=== PATIENT | male | born 1955 | race Caucasian/White ===

== ENCOUNTER 2020-10-08 12:18 | Emergency (ER) | payer MEDICARE ==
[~2020-10-08] VITALS: Ht 182.9 cm; Wt 111.1 kg
[2020-10-08 14:12] LABS: BASOPHILS ABSOLUTE AUTO 0.02 K/mm3 (0.00-0.23); BASOPHILS PERCENT AUTO 0 % (0-2); EOSINOPHILS ABSOLUTE AUTO 0.07 K/mm3 (0.00-0.68); EOSINOPHILS PERCENT AUTO 1 % (0-6); Hematocrit 44.7 % (37.0-53.0); IMMATURE GRAN ABSOLUTE AUTO 0.02 K/mm3 (0.00-0.10); IMMATURE GRAN PERCENT AUTO 0 % (0-1); LYMPHOCYTES ABSOLUTE AUTO 2.46 K/mm3 (0.84-5.20); LYMPHOCYTES PERCENT AUTO 35 % (21-46); MONOCYTES ABSOLUTE AUTO 0.63 K/mm3 (0.16-1.47); MONOCYTES PERCENT AUTO 9 % (4-13); Mean Corpuscular HGB 34.7 pg (26.0-34.0); Mean Corpuscular HGB Conc 33.6 g/dL (31.5-36.5); Mean Corpuscular Volume 104 fL (80-100); Mean Platelet Volume 9.6 fL (9.1-12.4); NEUTROPHILS PERCENT AUTO 54 % (41-73); Platelet Count 208 K/mm3 (150-400); RDW Coefficient Variation 12.5 % (11.7-14.2); RDW Standard Deviation 47.9 fL (35.1-46.3); Red Blood Cell Count 4.32 M/mm3 (4.30-5.90)
[2020-10-08 14:20] LABS: Calcium, Ionized (POC) 1.17 mmol/L (1.10-1.46); Chloride (POC) 102 mmol/L (98-108); Glucose (ISTAT POC) 88 mg/dL (70-99); Potassium (POC) 4.3 mmol/L (3.5-5.5); Sodium (POC) 138 mmol/L (135-148); Total CO2 (POC) 26 mmol/L (21-32)
[2020-10-08 14:30] LABS: Anion Gap 5 mmol/L (6-16); Blood Urea Nitrogen 10 mg/dL (8-24); Bun/Creatinine Ratio 12.4 (12.0-20.0); CO2, Blood 28 mmol/L (21-32); Calcium, Blood 9.1 mg/dL (8.5-10.1); Chloride, Blood 107 mmol/L (98-108); Creatinine, Blood 0.81 mg/dL (0.60-1.20); Glomerular Filtration Rate >60 (60-); Glucose, Blood 96 mg/dL (70-99); Potassium, Blood 4.4 mmol/L (3.5-5.5); Sodium, Blood 140 mmol/L (136-145)
[2020-10-08] MEDS ORDERED: HYDR1TAB94 PO (15:34)
== END 2020-10-08 15:45 | disposition home or self-care (01) ==
LOC: ER 12:18
PROVIDERS: Physician Assistant
DX: S20.212A Contusion of left front wall of thorax, initial encounter (principal); S39.91XA Unspecified injury of abdomen, initial encounter; W17.89XA Other fall from one level to another, initial encounter; Y93.89 Activity, other specified
CPT/HCPCS: 71100; 74177; 80047; 80048; 85014; 85025; 99284-25; Q9967

== ENCOUNTER 2021-05-17 15:16 | Inpatient (IN) | payer MEDICARE ==
[~2021-05-17] VITALS: Ht 170.2 cm; Wt 113.4 kg
[~2021-05-17 15:16] MED LIST: HYDR1TAB94 PO
[2021-05-17 15:45] LABS: Hematocrit 42.1 % (37.0-53.0); Hemoglobin 14.3 g/dL (13.5-17.5); Mean Corpuscular HGB 34.6 pg (26.0-34.0); Mean Corpuscular Volume 102 fL (80-100); Mean Platelet Volume 10.3 fL (9.1-12.4); Platelet Count 144 K/mm3 (150-400); RDW Coefficient Variation 13.1 % (11.7-14.2); RDW Standard Deviation 49.1 fL (35.1-46.3); Red Blood Cell Count 4.13 M/mm3 (4.30-5.90); White Blood Cell Count 12.46 K/mm3 (4.00-11.30)
[2021-05-17 15:55] LABS: Alanine Aminotransfer (ALT/SGP 95 U/L (12-78); Albumin, Blood 2.8 g/dL (3.4-5.0); Albumin/Globulin Ratio 0.7 (0.8-1.8); Alk Phos 69 U/L (50-136); Anion Gap 6 mmol/L (6-16); Aspartate Aminotrans (AST/SGOT 117 U/L (12-37); Bilirubin, Total 0.7 mg/dL (0.1-1.0); Blood Urea Nitrogen 10 mg/dL (8-24); Bun/Creatinine Ratio 9.9 (12.0-20.0); CO2, Blood 26 mmol/L (21-32); Chloride, Blood 107 mmol/L (98-108); Creatinine, Blood 1.01 mg/dL (0.60-1.20); Globulin, Blood 4.1 g/dL (2.2-4.0); Glomerular Filtration Rate >60 (60-); Glucose, Blood 116 mg/dL (70-99); Sodium, Blood 139 mmol/L (136-145); Total Protein, Blood 6.9 g/dL (6.4-8.2); Troponin I 0.015 ng/mL (0.000-0.040)
[2021-05-17 16:10] LABS: BAND PERCENT MAN 21 % (0-8); BASOPHILS PERCENT MAN 0 % (0-2); EOSINOPHILS PERCENT MAN 0 % (0-6); LYMPHOCYTES % ATYPICAL MANUAL 1 % (0-0); LYMPHOCYTES ABSOLUTE MAN 1.61 K/mm3 (0.84-5.20); LYMPHOCYTES PERCENT MAN 12 % (21-46); METAMYELOCYTE ABSOLUTE MAN 0.24 K/mm3 (0.00-0.00); METAMYELOCYTE PERCENT MAN 2 % (0-0); MONOCYTES ABSOLUTE MAN 0.37 K/mm3 (0.16-1.47); MONOCYTES PERCENT MAN 3 % (4-13); NEUTROPHILS ABSOLUTE MAN 10.21 K/mm3 (1.96-9.15); SEG NEUTROPHILS PERCENT MAN 61 % (41-73); TOTAL CELLS COUNTED 100
[2021-05-17] MEDS ORDERED: AMPDEX5 PO (17:45)
[2021-05-17] MEDS ORDERED: CLON1 PO (17:46)
[2021-05-17 18:32] LABS: U Amphetamine Screen DETECTED; U Barbituate Screen Not Detected; U Benzodiazapine Screen Not Detected; U Buprenorphine Screen Not Detected; U Cannabinoids Screen Not Detected; U Cocaine Screen Not Detected; U Methadone Screen Not Detected; U Methamphetamine Screen DETECTED; U Opiates Screen DETECTED; U Oxycodone Screen Not Detected; U Phencyclidine Screen Not Detected; U Propoxyphene Screen Not Detected
--- NOTE | 2021-05-17 23:21 | NUR ---
65 yr old male admitted to floor from the ed with dx of covid +, lungs diminished in all lobes to auscultation. O2 started at 1L/min per nc. IVF of LR infusing at 125 ml/hr. Oriented to use of call light, call light in reach. Instructed to remain in bed as he has HX of falls. Bed alram on. Isolation precautions maintained
--- NOTE | 2021-05-18 02:44 | NUR ---
3 BLUE PILLS FOUND IN BED WITH PT. NOT IDENTIFIABLE. NOT ADMINISTERED BY STAFF HERE AT [facility], PT VOICED WERE PILLS BROUGHT FROM HOME. PILLS DISCARDED IN SHARPS CONTAINER. INSTRUCTED NOT TO TAKE ANY MEDICATIONS NOT GIVEN TO HIM BY STAFF HERE. BELONGINGS SEARCHED, PERSONAL MEDICATIONS REMOVED AND PLACED IN LOCKED DRAWER. CALL LIGHT IN REACH.
--- NOTE | 2021-05-18 03:37 | NUR ---
[employer] SUMMARY WAS ADMITTED EARLIER IN THE SHIFT WITH COVID + DX. PLACED ON O2 AT 1L/MIN FOR COMFORT. SATS MAINTAINED. IV OF LR INFUSING AT 125 ML/HR. INSTRUCTED TO REMAIN IN BED HE IS UNSTEADY ON FEET AND HAS FALLEN AT HOME. MULTIPLE REDIRECTIONS FOR SAFETY GIVEN. PERSONAL MEDS FOUND IN BED AND CONFISCATED AND INSTRUCTED NOT TO TAKE MEDS NOT ADMINISTERED BY HOSPITAL STAFF THEY COULD INTERFERE WITH MEDS GIVEN HERE. PERSONAL MEDS PLACED IN LOCK UP AND WILL BE GIVEN BACK TO HIM UPON DISCHARGE. CALL LIGHT IN REACH. DROPLET PRECAUTIONS MAINTAINED.
[2021-05-18 05:59] LABS: Hematocrit 42.1 % (37.0-53.0); Hemoglobin 13.8 g/dL (13.5-17.5); Mean Corpuscular HGB 34.1 pg (26.0-34.0); Mean Corpuscular HGB Conc 32.8 g/dL (31.5-36.5); Mean Corpuscular Volume 104 fL (80-100); Mean Platelet Volume 10.6 fL (9.1-12.4); Platelet Count 140 K/mm3 (150-400); RDW Coefficient Variation 13.3 % (11.7-14.2); RDW Standard Deviation 51.9 fL (35.1-46.3); Red Blood Cell Count 4.05 M/mm3 (4.30-5.90); White Blood Cell Count 12.54 K/mm3 (4.00-11.30)
[2021-05-18 06:10] LABS: Alanine Aminotransfer (ALT/SGP 77 U/L (12-78); Albumin, Blood 2.4 g/dL (3.4-5.0); Albumin/Globulin Ratio 0.5 (0.8-1.8); Alk Phos 67 U/L (50-136); Anion Gap 5 mmol/L (6-16); Aspartate Aminotrans (AST/SGOT 70 U/L (12-37); Bilirubin, Total 0.6 mg/dL (0.1-1.0); Blood Urea Nitrogen 10 mg/dL (8-24); Bun/Creatinine Ratio 11.4 (12.0-20.0); CO2, Blood 28 mmol/L (21-32); Chloride, Blood 108 mmol/L (98-108); Creatinine, Blood 0.87 mg/dL (0.60-1.20); Globulin, Blood 4.4 g/dL (2.2-4.0); Glomerular Filtration Rate >60 (60-); Glucose, Blood 110 mg/dL (70-99); Potassium, Blood 3.9 mmol/L (3.5-5.5); Sodium, Blood 141 mmol/L (136-145); Total Protein, Blood 6.8 g/dL (6.4-8.2)
--- NOTE | 2021-05-18 16:54 | NUR ---
SHIFT SUMMARY. A&OX3, INDEPENDENT TO BSC, PLEASANT AND COOPERATIVE WITH CARE, FLAT AFFECT. PT DENIES PAIN, N/V. PT REPORTS POOR APPETITE. PT ON 1L O2 THIS AM, NOW ON RA. LUNGS DIM IN THE BASES. SOB WITH EXERTION. PT RECIEVED SHOWER TODAY AFTER INCONTINENT UNFORMED BM THIS AFTERNOON WHILE UP IN CHAIR. PT REPORTS "ABX ALWAYS GIVE ME DIARRHEA." NO FURTHER BMS THIS SHIFT. DAUGHER CALLED AND UPDATE GIVEN PER PT REQUEST. NO OTHER CHANGES OR CONCERNS.
--- NOTE | 2021-05-19 04:00 | NUR ---
SHIFT SUMMARY ADMITTED FOR COVID+/SEPSIS. FULL CODE. POSSIBLE BACTERIAL PNEUMONIA. HOPEFUL FOR DC HOME TODAY W/HH. NO NEW CONCERNS THIS SHIFT
[2021-05-19 05:39] LABS: BASOPHILS ABSOLUTE AUTO 0.01 K/mm3 (0.00-0.23); BASOPHILS PERCENT AUTO 0 % (0-2); EOSINOPHILS PERCENT AUTO 0 % (0-6); Hematocrit 47.8 % (37.0-53.0); Hemoglobin 15.5 g/dL (13.5-17.5); IMMATURE GRAN ABSOLUTE AUTO 0.04 K/mm3 (0.00-0.10); IMMATURE GRAN PERCENT AUTO 1 % (0-1); LYMPHOCYTES ABSOLUTE AUTO 2.13 K/mm3 (0.84-5.20); LYMPHOCYTES PERCENT AUTO 26 % (21-46); MONOCYTES ABSOLUTE AUTO 0.31 K/mm3 (0.16-1.47); MONOCYTES PERCENT AUTO 4 % (4-13); Mean Corpuscular HGB 34.6 pg (26.0-34.0); Mean Corpuscular HGB Conc 32.4 g/dL (31.5-36.5); Mean Corpuscular Volume 107 fL (80-100); NEUTROPHILS ABSOLUTE AUTO 5.73 K/mm3 (1.96-9.15); NEUTROPHILS PERCENT AUTO 70 % (41-73); Platelet Count 159 K/mm3 (150-400); RDW Coefficient Variation 13.2 % (11.7-14.2); RDW Standard Deviation 52.9 fL (35.1-46.3); Red Blood Cell Count 4.48 M/mm3 (4.30-5.90); White Blood Cell Count 8.22 K/mm3 (4.00-11.30)
[2021-05-19 06:07] LABS: Alanine Aminotransfer (ALT/SGP 71 U/L (12-78); Albumin, Blood 2.5 g/dL (3.4-5.0); Albumin/Globulin Ratio 0.5 (0.8-1.8); Alk Phos 74 U/L (50-136); Anion Gap 10 mmol/L (6-16); Aspartate Aminotrans (AST/SGOT 48 U/L (12-37); Bilirubin, Total 1.3 mg/dL (0.1-1.0); Blood Urea Nitrogen 13 mg/dL (8-24); Bun/Creatinine Ratio 17.8 (12.0-20.0); CO2, Blood 26 mmol/L (21-32); Calcium, Blood 9.1 mg/dL (8.5-10.1); Chloride, Blood 108 mmol/L (98-108); Creatinine, Blood 0.73 mg/dL (0.60-1.20); Globulin, Blood 5.3 g/dL (2.2-4.0); Glomerular Filtration Rate >60 (60-); Glucose, Blood 120 mg/dL (70-99); Potassium, Blood 3.5 mmol/L (3.5-5.5); Sodium, Blood 144 mmol/L (136-145); Total Protein, Blood 7.8 g/dL (6.4-8.2)
[2021-05-19] MEDS ORDERED: GUAI600T33 PO (11:13)
[2021-05-19] MEDS ORDERED: LACT PO (11:14)
[2021-05-19] MEDS ORDERED: AZIT250 PO (11:14)
[2021-05-19] MEDS ORDERED: CEPH500 PO (11:15)
--- NOTE | 2021-05-19 13:18 | NUR ---
PATIENT DISCHARGED AT 13:15. GREY ROLL MAN PUSHED THE PATIENT TO HIS DAUGHTERS CAR BY WHEELCHAIR. DISCHARGE INFORMATION AND NEW MEDICATIONS GONE OVER WITH THE PATIENT.
--- NOTE | 2021-05-19 13:19 | NUR ---
STEFFEN RN ATTEMPTED TO MAKE HIS FOLLOW UP APPOINTMENT WITH HIS PCP BUT THERE WAS NO ANSWER.
--- NOTE | 2021-05-19 14:24 | NUR ---
Pt. is discharged for good wished him all the best
--- NOTE | 2021-05-19 14:34 | NUR ---
Pt. is discharged and gone home
== END 2021-05-19 13:37 | disposition home health service (06) | DRG 871 ==
LOC: ER 15:16 → ERHOLD 19:46 → MEDS 21:43
PROVIDERS: Emergency Medicine; Family Medicine; ADMIT Internal Medicine
PROC: 8E0ZXY6 Isolation (ICD-10-PCS; 2021-05-17)
PROC: 3E0D73Z Introduction of Anti-inflammatory into Mouth and Pharynx, Via Natural or Artificial Opening (ICD-10-PCS; principal; 2021-05-18)
DX: A41.89 Other specified sepsis (principal); U07.1 COVID-19; J12.82 Pneumonia due to coronavirus disease 2019; J15.9 Unspecified bacterial pneumonia; F19.10 Other psychoactive substance abuse, uncomplicated; E66.01 Morbid (severe) obesity due to excess calories; D69.59 Other secondary thrombocytopenia; G89.29 Other chronic pain; M54.9 Dorsalgia, unspecified; R09.02 Hypoxemia; Z62.810 Personal history of physical and sexual abuse in childhood; Z98.890 Other specified postprocedural states; Z79.899 Other long term (current) drug therapy; Z68.39 Body mass index [BMI] 39.0-39.9, adult
CPT/HCPCS: 36415; 51702; 71045; 80053; 83605; 84145; 84484; 85025; 85027; 87040; 93005; 93010; 94761; 94762; 96365-59; 97110; 97161; 97165; 97530; 99285-25; A9270; J0696; J7030; J7050; J7120

== ENCOUNTER 2022-08-16 19:48 | Emergency (ER) | payer MEDICARE ==
[~2022-08-16] VITALS: Ht 182.9 cm; Wt 104.3 kg
[~2022-08-16 19:48] MED LIST changes: +AMPDEX5 PO; +AZIT250 PO; +CEPH500 PO; +CLON1 PO; +GUAI600T33 PO; +LACT PO
[2022-08-16] MEDS ORDERED: Celexa20 MG PO (21:07)
[2022-08-16] MEDS ORDERED: ERYT1OIN BOTHEYES (21:35)
== END 2022-08-16 21:49 | disposition home or self-care (01) ==
LOC: ER 19:48
DX: S05.02XA Injury of conjunctiva and corneal abrasion without foreign body, left eye, initial encounter (principal); H10.9 Unspecified conjunctivitis; Z79.899 Other long term (current) drug therapy; X58.XXXA Exposure to other specified factors, initial encounter
CPT/HCPCS: A9270

== ENCOUNTER 2022-12-10 04:43 | Emergency (ER) | payer MEDICARE ==
[~2022-12-10] VITALS: Ht 182.9 cm; Wt 108.9 kg
[~2022-12-10 04:43] MED LIST changes: +Celexa20 MG PO; +ERYT1OIN BOTHEYES
[2022-12-10 05:07] LABS: BASOPHILS ABSOLUTE AUTO 0.01 K/mm3 (0.00-0.23); BASOPHILS PERCENT AUTO 0 % (0-2); EOSINOPHILS ABSOLUTE AUTO 0.02 K/mm3 (0.00-0.68); EOSINOPHILS PERCENT AUTO 0 % (0-6); Hemoglobin 15.9 g/dL (13.5-17.5); IMMATURE GRAN ABSOLUTE AUTO 0.03 K/mm3 (0.00-0.10); IMMATURE GRAN PERCENT AUTO 0 % (0-1); LYMPHOCYTES ABSOLUTE AUTO 1.13 K/mm3 (0.84-5.20); LYMPHOCYTES PERCENT AUTO 13 % (21-46); MONOCYTES ABSOLUTE AUTO 0.33 K/mm3 (0.16-1.47); MONOCYTES PERCENT AUTO 4 % (4-13); Mean Corpuscular HGB Conc 34.6 g/dL (31.5-36.5); Mean Corpuscular Volume 101 fL (80-100); NEUTROPHILS ABSOLUTE AUTO 7.25 K/mm3 (1.96-9.15); NEUTROPHILS PERCENT AUTO 83 % (41-73); Platelet Count 204 K/mm3 (150-400); RDW Coefficient Variation 12.8 % (11.7-14.2); RDW Standard Deviation 48.2 fL (35.1-46.3); Red Blood Cell Count 4.54 M/mm3 (4.30-5.90); White Blood Cell Count 8.77 K/mm3 (4.00-11.30)
[2022-12-10 05:17] LABS: Albumin, Blood 3.9 g/dL (3.4-5.0); Albumin/Globulin Ratio 0.9 (0.8-1.8); Bilirubin, Total 0.6 mg/dL (0.1-1.0); Bun/Creatinine Ratio 12.4 (12.0-20.0); Calcium, Blood 8.6 mg/dL (8.5-10.1); Creatinine, Blood 0.73 mg/dL (0.60-1.20); Globulin, Blood 4.2 g/dL (2.2-4.0); Potassium, Blood 4.6 mmol/L (3.5-5.5); Total Protein, Blood 8.1 g/dL (6.4-8.2)
[2022-12-10 06:53] LABS: Source, Urine Straight Cath
[2022-12-10 07:07] LABS: Appearance, Urine Clear (Clear); Bilirubin, Urine Neg (Neg); Blood, Urine Neg (Neg); Color, Urine Yellow (P-Yellow); Glucose Qualitative, Urine Neg (Neg); Ketones, Urine 3+ (Neg); Leukocyte Esterase, Urine Neg (Neg); Nitrite, Urine Neg (Neg); Protein, Urine 2+ (Neg); Specific Gravity, Urine 1.025 (1.003-1.022); Urobilinogen, Urine NORM (Normal)
[2022-12-10 07:20] LABS: U Amphetamine Screen DETECTED; U Barbituate Screen Not Detected; U Methamphetamine Screen Not Detected
[2022-12-10 07:21] LABS: U Benzodiazapine Screen Not Detected; U Buprenorphine Screen Not Detected; U Cannabinoids Screen Not Detected; U Cocaine Screen Not Detected; U Methadone Screen Not Detected; U Opiates Screen Not Detected; U Oxycodone Screen Not Detected; U Phencyclidine Screen Not Detected; U Propoxyphene Screen Not Detected
[2022-12-10 07:24] LABS: Red Blood Cells, Urine Not Seen /hpf (0-2); Squamous Epithelial Cells Rare /hpf (Few); White Blood Cells, Urine Not Seen /hpf (0-5)
[2022-12-10] MEDS ORDERED: QUETIAPINE FUMA25 MG PO (07:24)
[2022-12-10] MEDS ORDERED: Adderall 5mg tab5 MG PO (07:24)
[2022-12-10 07:25] LABS: Bacteria Not Seen /hpf
[2022-12-10] MEDS ORDERED: CELEXA40 M9 PO (07:25)
[2022-12-10] MEDS ORDERED: TRAZ50 PO (07:26)
[2022-12-10] MEDS ORDERED: KLONOPIN0.5 M9 PO (07:26)
[2022-12-10] MEDS ORDERED: LAMICTAL200 MG PO (07:26)
[2022-12-10 07:27] LABS: Mucus Light (0-Heavy)
[2022-12-10] MEDS ORDERED: HYDROCODONE-AC1 EA19 PO (07:27)
== END 2022-12-10 08:10 | disposition home or self-care (01) ==
LOC: ER 04:43
PROVIDERS: Emergency Medicine; Student in an Organized Health Care Education/Training Program
DX: R11.0 Nausea (principal); R07.89 Other chest pain; T42.8X5A Adverse effect of antiparkinsonism drugs and other central muscle-tone depressants, initial encounter; R33.9 Retention of urine, unspecified; R91.1 Solitary pulmonary nodule; Z79.899 Other long term (current) drug therapy
CPT/HCPCS: 51702; 74177; 80053; 81001; 84484; 85025; 93005; 93010; 99285-25; J2405; J7030; Q9967

== ENCOUNTER 2024-05-14 13:23 | Emergency (ER) | payer MEDICARE, OTHER ==
[~2024-05-14] VITALS: Ht 185.4 cm; Wt 113.4 kg
[~2024-05-14 13:23] MED LIST changes: +Adderall 5mg tab5 MG PO; +CELEXA40 M9 PO; +HYDROCODONE-AC1 EA19 PO; +IBUP600 PO; +KLONOPIN0.5 M9 PO; +LAMICTAL200 MG PO; +QUETIAPINE FUMA25 MG PO; +TRAZ50 PO
[2024-05-14 14:00] LABS: BASOPHILS ABSOLUTE AUTO 0.03 K/mm3 (0.00-0.23); BASOPHILS PERCENT AUTO 1 % (0-2); EOSINOPHILS ABSOLUTE AUTO 0.14 K/mm3 (0.00-0.68); EOSINOPHILS PERCENT AUTO 2 % (0-6); Hematocrit 41.1 % (37.0-53.0); Hemoglobin 14.2 g/dL (13.5-17.5); IMMATURE GRAN ABSOLUTE AUTO 0.02 K/mm3 (0.00-0.10); IMMATURE GRAN PERCENT AUTO 0 % (0-1); LYMPHOCYTES ABSOLUTE AUTO 2.05 K/mm3 (0.84-5.20); LYMPHOCYTES PERCENT AUTO 31 % (21-46); MONOCYTES ABSOLUTE AUTO 0.63 K/mm3 (0.16-1.47); MONOCYTES PERCENT AUTO 10 % (4-13); Mean Corpuscular HGB 34.6 pg (26.0-34.0); Mean Corpuscular HGB Conc 34.5 g/dL (31.5-36.5); Mean Corpuscular Volume 100 fL (80-100); NEUTROPHILS ABSOLUTE AUTO 3.67 K/mm3 (1.96-9.15); NEUTROPHILS PERCENT AUTO 56 % (41-73); Platelet Count 209 K/mm3 (150-400); RDW Coefficient Variation 12.5 % (11.7-14.2); RDW Standard Deviation 46.3 fL (35.1-46.3); White Blood Cell Count 6.54 K/mm3 (4.00-11.30)
[2024-05-14 14:21] LABS: Albumin, Blood 3.3 g/dL (3.4-5.0); Albumin/Globulin Ratio 0.8 (0.8-1.8); Bilirubin, Total 0.5 mg/dL (0.1-1.0); Bun/Creatinine Ratio 11.6 (12.0-20.0); Calcium, Blood 8.2 mg/dL (8.5-10.1); Creatinine, Blood 0.86 mg/dL (0.60-1.20); Globulin, Blood 4.2 g/dL (2.2-4.0); Potassium, Blood 3.2 mmol/L (3.5-5.5); Total Protein, Blood 7.5 g/dL (6.4-8.2)
[2024-05-14] MEDS ORDERED: NS 1,000 ML IV SCH (14:40)
[2024-05-14 15:15] VITALS: BP 134/79
== END 2024-05-14 15:59 | disposition home or self-care (01) ==
LOC: ER 13:23
PROVIDERS: Emergency Medicine
DX: R07.89 Other chest pain (principal); R74.01 Elevation of levels of liver transaminase levels; S00.83XA Contusion of other part of head, initial encounter; V18.4XXA Pedal cycle driver injured in noncollision transport accident in traffic accident, initial encounter; Z79.899 Other long term (current) drug therapy
CPT/HCPCS: 70450; 71046; 80053; 83880; 84484; 85025; 93005; 93010; 99285-25; J7030